=== PATIENT | male | born 1940 | race Two or more races ===

== ENCOUNTER → 2020-02-19 | Outpatient (CLI) | payer OTHER, MEDICARE ==
[~2020-02-19] MED LIST: ALLO100 PO; ALLO300 PO; AMOCLA875 PO; AMOX500 PO; ASPI325; ASPI81CH PO; ASPI81EC PO; ATOR10 PO; Acidophilus La100 GM; BASAGLAR K100 UNIT/1 SC; BUME1; BUME1 PO; BUME2 PO; CEFD300 PO; CHLO25B PO; CLON.2; CLOP75 PO; CLOT1TC TOP; CODGUAEL PO; COLC.6 PO; CYCL10 PO; DIAZ5 PO; DOC250 PO; DOCU100 PO; DOXA2 PO; DULO30 PO; FELO2.5; FOLI1 PO; Flonase 0.05% N16 GM; GABA100 PO; GABA300 PO; GLUCOSAMINE/CHONDROI PO; GLYB2.5; GLYB5 PO; GUAIFENESIN1200 MG PO; HYDACE10B PO; HYDACE5 PO; HYDACE5325 PO; HYDMOR4 PO; Hydrocodone-Ap1 EA20 PO; INS70/30I SC; INSR10I SUBQ; INSULANI SC; KETO5OP BOTHEYES; LACT10SY PO; LAVAP17G PO; LEVFLO500 PO; LIDOCAINE5 GM TOP; LISHYD2012; LISI20 PO; LISI5 PO; LOSA50 PO; Lantus100 UNIT/1 SQ; Loratadine10 MG PO; MAGCIT300 PO; MECL25 PO; METO50; METO50ER PO; METTREX2.5 PO; MOXI400 PO; Mucinex600 MG PO; NEOPOLHCSU OT; NEOPOLHYDS OT; NITR.4SL SL; NITR.6SL SL; Novolog100 UNIT/1 SC; OFLO.3OTSO AU; OMEP20ER; OMEP20ER PO; OXYACE5T PO; OXYC10TA19 PO; OXYC5 PO; Omeprazole20 M1; Omeprazole20 M1 PO; POLY17UD PO; POTA20LUD PO; POTA20PAC; POTA8; POTCHL10ER PO; POTCHL20ER PO; PRED5 PO; PREG75 PO; PROBIOTIC1 EAC1 MT; PROM25 PO; PSEU120ER PO; PSYL5.85P PO; Percocet 5-3251 EACH PO; RANI150; RANI150 PO; REFRESH OPTIVE10 ML BOTHEYES; REGULAR INSULIN; Revatio20 MG PO; SILD50TA PO; SIMV10; SPIR25 PO; TRAZ100 PO; TRIGLIDE; VICODIN 5-3001 EACH PO; Vibramycin100 MG PO; ZOLP12.5 PO; Zithromax250 MG PO
[2020-02-19 11:39] LABS: BASOPHILS ABSOLUTE AUTO 0.04 K/mm3 (0.00-0.23); BASOPHILS PERCENT AUTO 0 % (0-2); EOSINOPHILS ABSOLUTE AUTO 0.15 K/mm3 (0.00-0.68); EOSINOPHILS PERCENT AUTO 2 % (0-6); Hematocrit 46.3 % (37.0-53.0); Hemoglobin 15.4 g/dL (13.5-17.5); IMMATURE GRAN ABSOLUTE AUTO 0.02 K/mm3 (0.00-0.10); IMMATURE GRAN PERCENT AUTO 0 % (0-1); LYMPHOCYTES ABSOLUTE AUTO 1.99 K/mm3 (0.84-5.20); LYMPHOCYTES PERCENT AUTO 21 % (21-46); MONOCYTES ABSOLUTE AUTO 0.68 K/mm3 (0.16-1.47); MONOCYTES PERCENT AUTO 7 % (4-13); Mean Corpuscular HGB 31.8 pg (26.0-34.0); Mean Corpuscular HGB Conc 33.3 g/dL (31.5-36.5); Mean Corpuscular Volume 96 fL (80-100); Mean Platelet Volume 10.3 fL (9.1-12.4); NEUTROPHILS ABSOLUTE AUTO 6.65 K/mm3 (1.96-9.15); NEUTROPHILS PERCENT AUTO 70 % (41-73); Platelet Count 232 K/mm3 (150-400); RDW Coefficient Variation 12.7 % (11.7-14.2); RDW Standard Deviation 44.8 fL (35.1-46.3); Red Blood Cell Count 4.85 M/mm3 (4.30-5.90); White Blood Cell Count 9.53 K/mm3 (4.00-11.30)
[2020-02-19 11:51] LABS: International Normalized Ratio 1.01; Prothrombin Time Results 10.8 Sec (9.7-11.5)
[2020-02-19 12:03] LABS: Bun/Creatinine Ratio 21.9 (12.0-20.0); Calcium, Blood 8.7 mg/dL (8.5-10.1); Creatinine, Blood 1.46 mg/dL (0.60-1.20); Potassium, Blood 3.9 mmol/L (3.5-5.5)
== END | disposition home or self-care (01) ==
LOC: LAB 11:28 → LAB SHORT 11:28
PROVIDERS: Internal Medicine Cardiovascular Disease
DX: E11.49 Type 2 diabetes mellitus with other diabetic neurological complication (principal); I51.89 Other ill-defined heart diseases; I25.10 Atherosclerotic heart disease of native coronary artery without angina pectoris; I10 Essential (primary) hypertension; I49.3 Ventricular premature depolarization; R07.9 Chest pain, unspecified
CPT/HCPCS: 80048; 85025; 85610

== ENCOUNTER 2020-02-20 10:10 | Day surgery (SDC) | payer OTHER, MEDICARE ==
[~2020-02-20] VITALS: Ht 165.1 cm; Wt 86.0 kg
== END 2020-02-20 14:21 | disposition short-term general hospital (02) ==
LOC: MHTC 10:10
PROC: B2111ZZ Fluoroscopy of Multiple Coronary Arteries using Low Osmolar Contrast (ICD-10-PCS; principal; 2020-02-20)
PROC: 4A023N7 Measurement of Cardiac Sampling and Pressure, Left Heart, Percutaneous Approach (ICD-10-PCS; principal; 2020-02-20)
DX: I25.10 Atherosclerotic heart disease of native coronary artery without angina pectoris (principal); I11.0 Hypertensive heart disease with heart failure; I50.9 Heart failure, unspecified; E11.9 Type 2 diabetes mellitus without complications; I34.0 Nonrheumatic mitral (valve) insufficiency; E78.5 Hyperlipidemia, unspecified; K21.9 Gastro-esophageal reflux disease without esophagitis; M10.9 Gout, unspecified; I25.2 Old myocardial infarction; Z79.4 Long term (current) use of insulin; Z79.51 Long term (current) use of inhaled steroids; Z79.82 Long term (current) use of aspirin; Z79.899 Other long term (current) drug therapy; Z87.891 Personal history of nicotine dependence; Z88.8 Allergy status to other drugs, medicaments and biological substances; Z90.49 Acquired absence of other specified parts of digestive tract; Z95.0 Presence of cardiac pacemaker; Z95.5 Presence of coronary angioplasty implant and graft
CPT/HCPCS: 82947; 93454; 99152; 99153; C1769; C1894; J1644; J2250; J3010; J7030; Q9967

== ENCOUNTER 2020-04-01 03:19 | Observation (INO) | payer OTHER, MEDICARE ==
[~2020-04-01] VITALS: Ht 165.1 cm; Wt 81.7 kg
[2020-04-01 03:57] LABS: BASOPHILS ABSOLUTE AUTO 0.04 K/mm3 (0.00-0.23); BASOPHILS PERCENT AUTO 1 % (0-2); EOSINOPHILS ABSOLUTE AUTO 0.36 K/mm3 (0.00-0.68); EOSINOPHILS PERCENT AUTO 5 % (0-6); Hematocrit 31.2 % (37.0-53.0); Hemoglobin 9.7 g/dL (13.5-17.5); IMMATURE GRAN ABSOLUTE AUTO 0.01 K/mm3 (0.00-0.10); IMMATURE GRAN PERCENT AUTO 0 % (0-1); LYMPHOCYTES ABSOLUTE AUTO 1.52 K/mm3 (0.84-5.20); LYMPHOCYTES PERCENT AUTO 22 % (21-46); MONOCYTES ABSOLUTE AUTO 0.69 K/mm3 (0.16-1.47); MONOCYTES PERCENT AUTO 10 % (4-13); Mean Corpuscular HGB 29.4 pg (26.0-34.0); Mean Corpuscular HGB Conc 31.1 g/dL (31.5-36.5); Mean Corpuscular Volume 95 fL (80-100); Mean Platelet Volume 9.3 fL (9.1-12.4); NEUTROPHILS ABSOLUTE AUTO 4.23 K/mm3 (1.96-9.15); NEUTROPHILS PERCENT AUTO 62 % (41-73); Platelet Count 281 K/mm3 (150-400); RDW Coefficient Variation 12.9 % (11.7-14.2); RDW Standard Deviation 44.8 fL (35.1-46.3); White Blood Cell Count 6.85 K/mm3 (4.00-11.30)
[2020-04-01 04:20] LABS: Alanine Aminotransfer (ALT/SGP 7 U/L (12-78); Albumin, Blood 3.2 g/dL (3.4-5.0); Alk Phos 73 U/L (50-136); Anion Gap 7 mmol/L (6-16); Aspartate Aminotrans (AST/SGOT 10 U/L (12-37); Bilirubin, Total 0.3 mg/dL (0.1-1.0); Blood Urea Nitrogen 28 mg/dL (8-24); Bun/Creatinine Ratio 19.6 (12.0-20.0); CO2, Blood 28 mmol/L (21-32); Calcium, Blood 8.2 mg/dL (8.5-10.1); Chloride, Blood 108 mmol/L (98-108); Creatinine, Blood 1.43 mg/dL (0.60-1.20); Globulin, Blood 3.2 g/dL (2.2-4.0); Glomerular Filtration Rate 50 (60-); Glucose, Blood 84 mg/dL (70-99); Potassium, Blood 3.3 mmol/L (3.5-5.5); Sodium, Blood 143 mmol/L (136-145); Total Protein, Blood 6.4 g/dL (6.4-8.2); Troponin I <0.015 ng/mL (0.000-0.040)
[2020-04-01] MEDS ORDERED: Bumetanide1 MG PO (04:41)
[2020-04-01] MEDS ORDERED: REFRESH OPTIVE10 ML (04:43)
[2020-04-01] MEDS ORDERED: METOPROLOL TART25 MG PO (04:45)
[2020-04-01] MEDS ORDERED: POTCHL20ER PO (04:46)
[2020-04-01] MEDS ORDERED: INSULANPEN SC (05:06)
[2020-04-01] MEDS ORDERED: NOVOLOG100 UNIT/1 SC (05:07)
[2020-04-01] MEDS ORDERED: TAMS.4ER PO (09:17)
--- NOTE | 2020-04-01 11:07 | NUR ---
Echocardiogram completed.
[2020-04-01 12:25] LABS: CPK Creatine Kinase 55 U/L (39-308); Magnesium, Blood 2.5 mg/dL (1.6-2.4); Troponin I <0.015 ng/mL (0.000-0.040)
[2020-04-01] MEDS ORDERED: Flomax0.4 MG PO (16:21)
--- NOTE | 2020-04-01 16:24 | NUR ---
RECEIVED VERBAL ORDER FOR TAMSULOSIN AND NASAL SPRAY FROM DR. SCHREIBER
--- NOTE | 2020-04-01 17:49 | NUR ---
Shift Summary A/Ox3 pleasant and cooperative. Ambulated and up in room independently, tolerated ambulation well c FWW. Able to make needs known. Denies chest pain, SOB, dyspnea. C/O nausea after meals, medicated x 1 per EMAR with good results. Tele: SR First degree with BBB @ 70's. Blood sugars have been stable. Continent. No other concerns. Will continue to monitor.
--- NOTE | 2020-04-01 20:09 | NUR ---
ASSUMED CARE. AOX3, COOPERATIVE. LAYING IN BED. BEEN TIRED LATELY. DENIES ANY CURRENT CHEST PAIN OR DISCOMFORT. NO PALPITATIONS. EDEMA TO BLE +2 SHINY AND TIGHT UP TO KNEES. TELEMETRY SHOWS PACED AT 60. FIXED THE LEADS. DENIES ANY OTHER PAIN. STATES HE DOES NOT KNOW WHAT CAUSED THE CHEST PAIN WHEN HE CAME IN BUT IT IS THE WORST HE HAS EVER HAD. DISCUSSED CARDIAC HOME CARE AND PREVENTIONS. HE IS KNOWLEDGABLE. VS WNL. ADMINISTERED MEDICATION. DENIES ANY NEEDS AT THIS TIME. CALL LIGHT IN REACH, INDEPENDENT IN THE ROOM.
[2020-04-01 21:05] LABS: CPK Creatine Kinase 51 U/L (39-308); Troponin I <0.015 ng/mL (0.000-0.040)
--- NOTE | 2020-04-02 05:38 | NUR ---
SHIFT SUMMARY: 79 Y/O ADMITTED FOR CP. TELE REPORTS PACED RATE OF 60. NO CHEST PAIN OR SOB THIS SHIFT. VS HAVE REMAINED STABLE, AFEBRILE. INDEPENDENT IN THE ROOM. WEIGHT 180. SHIFT INTAKE 476, OUTPUT 275 AND 2 UNMEASURED VOIDS. EDEMA REMAINS IN BLE. APPETITE GOOD. FOLLOWING ADA DIET. HOPES TO GO HOME TODAY. NO OTHER CHANGES OCCURRED THIS SHIFT.
[2020-04-02 05:52] LABS: BASOPHILS ABSOLUTE AUTO 0.04 K/mm3 (0.00-0.23); BASOPHILS PERCENT AUTO 1 % (0-2); EOSINOPHILS PERCENT AUTO 5 % (0-6); Hematocrit 28.1 % (37.0-53.0); Hemoglobin 8.7 g/dL (13.5-17.5); IMMATURE GRAN ABSOLUTE AUTO 0.01 K/mm3 (0.00-0.10); IMMATURE GRAN PERCENT AUTO 0 % (0-1); LYMPHOCYTES ABSOLUTE AUTO 1.51 K/mm3 (0.84-5.20); LYMPHOCYTES PERCENT AUTO 23 % (21-46); MONOCYTES ABSOLUTE AUTO 0.66 K/mm3 (0.16-1.47); MONOCYTES PERCENT AUTO 10 % (4-13); Mean Corpuscular Volume 94 fL (80-100); Mean Platelet Volume 9.7 fL (9.1-12.4); NEUTROPHILS ABSOLUTE AUTO 3.93 K/mm3 (1.96-9.15); NEUTROPHILS PERCENT AUTO 61 % (41-73); Platelet Count 261 K/mm3 (150-400); RDW Coefficient Variation 13.2 % (11.7-14.2); White Blood Cell Count 6.45 K/mm3 (4.00-11.30)
[2020-04-02 06:14] LABS: Albumin, Blood 2.8 g/dL (3.4-5.0); Albumin/Globulin Ratio 0.9 (0.8-1.8); Bilirubin, Total 0.3 mg/dL (0.1-1.0); Bun/Creatinine Ratio 17.5 (12.0-20.0); Calcium, Blood 8.1 mg/dL (8.5-10.1); Creatinine, Blood 1.6 mg/dL (0.60-1.20); Potassium, Blood 3.5 mmol/L (3.5-5.5); Total Protein, Blood 5.8 g/dL (6.4-8.2)
--- NOTE | 2020-04-02 09:48 | NUR ---
Discharge Summary Eager to be discharged, patient is being d/c home. stroke program coordinator Ger assisted with discharge paperwork. Discharge and educational paperwork reveiwed with patient, copy provided. IV removed, patient had no questions. No new meds, [facility] notified [facility]. Escorted via w/c by [employer], personal vehicle home. All belongings bagged by patient and sent home.
== END 2020-04-02 09:50 | disposition home or self-care (01) ==
LOC: ER 03:19 → MEDS 03:20
PROVIDERS: Emergency Medicine; ADMIT Internal Medicine
DX: I25.118 Atherosclerotic heart disease of native coronary artery with other forms of angina pectoris (principal); R13.10 Dysphagia, unspecified; N17.9 Acute kidney failure, unspecified; E87.6 Hypokalemia; D64.9 Anemia, unspecified; I13.0 Hypertensive heart and chronic kidney disease with heart failure and stage 1 through stage 4 chronic kidney disease, or unspecified chronic kidney disease; I50.9 Heart failure, unspecified; E11.22 Type 2 diabetes mellitus with diabetic chronic kidney disease; N18.3 Chronic kidney disease, stage 3 (moderate); N40.0 Benign prostatic hyperplasia without lower urinary tract symptoms; I25.2 Old myocardial infarction; K21.9 Gastro-esophageal reflux disease without esophagitis; M06.9 Rheumatoid arthritis, unspecified; Z95.0 Presence of cardiac pacemaker; Z95.1 Presence of aortocoronary bypass graft; Z79.82 Long term (current) use of aspirin; Z79.899 Other long term (current) drug therapy
CPT/HCPCS: 36415; 71046; 80053; 82550; 82947; 83690; 83735; 83880; 84484; 85025; 93005; 93010; 93306; 96372; 96374; 99285-25; A9270; A9270-GY; G0378; J1650; J2405

== ENCOUNTER 2020-06-08 09:11 | Inpatient (IN) | payer OTHER, MEDICARE ==
[~2020-06-08] VITALS: Ht 167.6 cm; Wt 87.0 kg
[~2020-06-08 09:11] MED LIST changes: +FLUT.05NI; +Flomax0.4 MG PO; +HYDROCODONE-AC1 EAC7 PO; -Hydrocodone-Ap1 EA20 PO; +LIDO700A20 TOP; -LIDOCAINE5 GM TOP; +METOPROLOL TART25 MG PO; +NOVOLOG FL100 UNIT/3 SC; +REFRESH OPTIVE10 ML; +TAMS.4ER PO
[2020-06-08 09:37] LABS: BASOPHILS ABSOLUTE AUTO 0.05 K/mm3 (0.00-0.23); BASOPHILS PERCENT AUTO 1 % (0-2); EOSINOPHILS ABSOLUTE AUTO 0.24 K/mm3 (0.00-0.68); EOSINOPHILS PERCENT AUTO 4 % (0-6); Hematocrit 44.1 % (37.0-53.0); Hemoglobin 13.9 g/dL (13.5-17.5); IMMATURE GRAN ABSOLUTE AUTO 0.01 K/mm3 (0.00-0.10); IMMATURE GRAN PERCENT AUTO 0 % (0-1); LYMPHOCYTES ABSOLUTE AUTO 2.12 K/mm3 (0.84-5.20); LYMPHOCYTES PERCENT AUTO 31 % (21-46); MONOCYTES PERCENT AUTO 10 % (4-13); Mean Corpuscular HGB 29.1 pg (26.0-34.0); Mean Corpuscular HGB Conc 31.5 g/dL (31.5-36.5); Mean Corpuscular Volume 93 fL (80-100); NEUTROPHILS ABSOLUTE AUTO 3.77 K/mm3 (1.96-9.15); NEUTROPHILS PERCENT AUTO 55 % (41-73); Platelet Count 211 K/mm3 (150-400); RDW Coefficient Variation 15.8 % (11.7-14.2); RDW Standard Deviation 53.7 fL (35.1-46.3); Red Blood Cell Count 4.77 M/mm3 (4.30-5.90); White Blood Cell Count 6.89 K/mm3 (4.00-11.30)
[2020-06-08 09:49] LABS: Albumin, Blood 3.5 g/dL (3.4-5.0); Albumin/Globulin Ratio 0.9 (0.8-1.8); Bilirubin, Total 0.3 mg/dL (0.1-1.0); Calcium, Blood 9.2 mg/dL (8.5-10.1); Creatinine, Blood 1.77 mg/dL (0.60-1.20); Potassium, Blood 4.2 mmol/L (3.5-5.5); Total Protein, Blood 7.5 g/dL (6.4-8.2); Troponin I 0.229 ng/mL (0.000-0.040)
[2020-06-08] MEDS ORDERED: FERSU300 PO ×2 (10:22→16:11)
[2020-06-08] MEDS ORDERED: FOLI1 PO (10:22)
[2020-06-08] MEDS ORDERED: LOSA50 PO (10:28)
[2020-06-08] MEDS ORDERED: PANT20 PO (10:28)
[2020-06-08] MEDS ORDERED: SPIR50 PO ×2 (10:29→16:16)
[2020-06-08] MEDS ORDERED: SILDENAFIL CIT100 MG PO (10:29)
[2020-06-08] MEDS ORDERED: Hytrin2 MG PO (10:30)
[2020-06-08 10:41] LABS: International Normalized Ratio 0.96; Prothrombin Time Results 10.3 Sec (9.7-11.5)
[2020-06-08] MEDS ORDERED: MIRALAX17 GM PO (14:01)
--- NOTE | 2020-06-08 15:27 | NUR ---
PT PACEMAKER CHECKED PER V/O FROM DR DECKER, DEVICE REVIEWED WITH DAVID ([employer]), REPORT ROUTED TO DR DECKER IN [facility]
[2020-06-08] MEDS ORDERED: LACT PO (16:13)
[2020-06-08] MEDS ORDERED: SILD50TA PO (16:15)
--- NOTE | 2020-06-08 18:12 | NUR ---
SHIFT SUMMARY PT WAS ADMIT THIS AFTERNOON FROM ER WITH CP. SINCE ARRIVAL TO PCU, PT HAS BEEN CHEST PAIN FREE. PT IS ALERT AND ORIENTED X4, INDEPENDANT IN ROOM. TELEMETRY HAS SHOWN PT TO BE SINUS WITH OCCASIONAL V-PACING, OTHER VITALS HAVE REMAINED STABLE. PT UPDATED ON PLAN FOR STRESS TEST TOMORROW. HEPARIN GTT INITIATED PER PHARMACY DOSING, SEE EMAR.
--- NOTE | 2020-06-09 06:00 | NUR ---
SHIFT SUMMARY. REPORTS FEELING GREAT THIS AM WHEN AWAKENED , NO CHEST DISCOMFORT OR ANY ISSUES. SCDS VERY COMFORTABLE FOR THE PAIN IN LEGS FROM NEUROPATHY.GOOD RELIEF. CHANGING DOSE FOR HEPARIN PER ORDER. REMAINS NPO
[2020-06-09 06:11] LABS: BASOPHILS ABSOLUTE AUTO 0.04 K/mm3 (0.00-0.23); BASOPHILS PERCENT AUTO 1 % (0-2); EOSINOPHILS ABSOLUTE AUTO 0.25 K/mm3 (0.00-0.68); EOSINOPHILS PERCENT AUTO 4 % (0-6); Hematocrit 42.8 % (37.0-53.0); IMMATURE GRAN ABSOLUTE AUTO 0.01 K/mm3 (0.00-0.10); IMMATURE GRAN PERCENT AUTO 0 % (0-1); LYMPHOCYTES ABSOLUTE AUTO 1.58 K/mm3 (0.84-5.20); LYMPHOCYTES PERCENT AUTO 28 % (21-46); MONOCYTES PERCENT AUTO 11 % (4-13); Mean Corpuscular HGB 29.5 pg (26.0-34.0); Mean Corpuscular HGB Conc 32.7 g/dL (31.5-36.5); Mean Corpuscular Volume 90 fL (80-100); Mean Platelet Volume 9.8 fL (9.1-12.4); NEUTROPHILS PERCENT AUTO 56 % (41-73); Platelet Count 195 K/mm3 (150-400); RDW Coefficient Variation 15.6 % (11.7-14.2); RDW Standard Deviation 51.8 fL (35.1-46.3); Red Blood Cell Count 4.74 M/mm3 (4.30-5.90); White Blood Cell Count 5.68 K/mm3 (4.00-11.30)
[2020-06-09 06:29] LABS: Alanine Aminotransfer (ALT/SGP 14 U/L (12-78); Albumin, Blood 3.2 g/dL (3.4-5.0); Albumin/Globulin Ratio 0.9 (0.8-1.8); Alk Phos 67 U/L (50-136); Anion Gap 6 mmol/L (6-16); Aspartate Aminotrans (AST/SGOT 17 U/L (12-37); Bilirubin, Total 0.5 mg/dL (0.1-1.0); Blood Urea Nitrogen 36 mg/dL (8-24); Bun/Creatinine Ratio 25.4 (12.0-20.0); CHOL/HDL RATIO 4.7; CO2, Blood 25 mmol/L (21-32); Chloride, Blood 109 mmol/L (98-108); Cholesterol 197 mg/dL (50-200); Creatinine, Blood 1.42 mg/dL (0.60-1.20); Globulin, Blood 3.6 g/dL (2.2-4.0); Glomerular Filtration Rate 51 (60-); Glucose, Blood 88 mg/dL (70-99); HDL Cholesterol 42 mg/dL (>39); LDL/HDL RATIO 3.1; Low Density Lipoprotein Chol 130 mg/dL (0-110); Sodium, Blood 140 mmol/L (136-145); Total Protein, Blood 6.8 g/dL (6.4-8.2); Triglycerides 127 mg/dL (30-160); Very Low Density Lipoprot Chol 25 mg/dL (6-32)
--- NOTE | 2020-06-09 07:34 | NUR ---
ASSUMED CARE: PT RESTING QUIETLY AT THIS TIME. HEPARIN GTT RUNNING AND DOSE VERIFIED WITH NIGHT RN. NO FURTHER NEEDS OR CONCERNS AT THIS TIME.
--- NOTE | 2020-06-09 17:15 | NUR ---
PT BECAME IRRITABLE AND ASKED WHY HE STILL HAD TO BE HERE SINCE HIS STRESS TEST WAS COMPLETED. CALL TO DR DECKER WHO STATED HE WANTS PT OFF HEPARIN AND MONITOR OVERNIGHT FOR POSSIBLE DC IN AM. TOLD PT WHO WASN'T THRILLED WITH NEWS BUT AGREED TO STAY TONIGHT.
--- NOTE | 2020-06-09 17:31 | NUR ---
SHIFT SUMMARY: DR STEVENS MADE AWARE OF DR DECKER'S PLAN FOR PT. PT START NEW MEDS THIS EVENING AND BE MONITORED OVERNIGHT FOR SYMPTOMS. PLAN IS FOR DC IN AM IF NO NEW CONCERNS. PT INDEPENDENT IN ROOM. NO FURTHER NEEDS AT THIS TIME.
--- NOTE | 2020-06-09 21:32 | NUR ---
ASSUMED CARE OF PATIENT AT APPROXIMATELY 1905 FROM SANTHOSH Laguerre RN. PATIENT ALERT AND ORIENTED X4; INDEPENDENT TO BATHROOM; REFUSES URINAL; REPORTS HE GOES INTO TOILET OR WILL GET IT ALL OVER THE PLACE. PATIENT DENIES PAIN, NUMBNESS, TINGLING, DIZZINESS OR NAUSEA. PIV S/L. PATIENT READY TO GO HOME. PATIENT CURRENTLY RESTING IN BED; CALL LIGHT IN REACH; BED IN LOWEST POSISTION; WILL CONTINUE TO MONITOR AND ASSESS UNTIL END OF SHIFT.
--- NOTE | 2020-06-09 22:07 | NUR ---
HEPARIN GTT; LAB HERE TO DRAW PTT; PHARMACIST NOT AWARE PATIENT WAS NO LONGER RECIEVING HEPARIN; NOTIFIED OF DAYSHIFT RN REPORT THAT HEPARIN TURNED OFF AND NOTE.
--- NOTE | 2020-06-10 06:41 | NUR ---
DR. DECKER CALLED TO REPORT PATIENT CAN DISCHARGE HOME.
--- NOTE | 2020-06-10 06:41 | NUR ---
PATIENT SLEPT ABOUT EIGHT HOURS LAST NIGHT. VSS. WILL CONTINUE TO MONITOR AND ASSESS UNTIL END OF SHIFT.
--- NOTE | 2020-06-10 08:12 | NUR ---
The pt is extremely eager to be discharged and released from the hospital. He is angry at being made to stay overnight.
[2020-06-10] MEDS ORDERED: LOSA25 PO (10:11)
[2020-06-10] MEDS ORDERED: CLOP75 PO (10:11)
[2020-06-10] MEDS ORDERED: Isosorbide Mono30 MG PO (10:12)
[2020-06-10] MEDS ORDERED: METO50ER PO (10:12)
== END 2020-06-10 11:15 | disposition home or self-care (01) | DRG 281 ==
LOC: ER 09:11 → PCU 11:35
PROVIDERS: Emergency Medicine; Nurse Practitioner Acute Care; ADMIT Family Medicine
DX: I21.4 Non-ST elevation (NSTEMI) myocardial infarction (principal); I13.0 Hypertensive heart and chronic kidney disease with heart failure and stage 1 through stage 4 chronic kidney disease, or unspecified chronic kidney disease; I50.32 Chronic diastolic (congestive) heart failure; N17.9 Acute kidney failure, unspecified; I25.10 Atherosclerotic heart disease of native coronary artery without angina pectoris; N18.3 Chronic kidney disease, stage 3 (moderate); E78.5 Hyperlipidemia, unspecified; E11.22 Type 2 diabetes mellitus with diabetic chronic kidney disease; K21.9 Gastro-esophageal reflux disease without esophagitis; M06.9 Rheumatoid arthritis, unspecified; E11.42 Type 2 diabetes mellitus with diabetic polyneuropathy; N40.0 Benign prostatic hyperplasia without lower urinary tract symptoms; Z95.0 Presence of cardiac pacemaker; Z95.1 Presence of aortocoronary bypass graft; Z95.5 Presence of coronary angioplasty implant and graft; Z79.82 Long term (current) use of aspirin; Z79.84 Long term (current) use of oral hypoglycemic drugs
CPT/HCPCS: 36415; 71046; 78452; 80053; 80061; 82947; 83735; 83880; 84484; 85025; 85610; 85730; 93005; 93010; 93017; 93280; 99285-25; A9270; A9270-GY; A9500; C9113; J0280; J1644; J2785

== ENCOUNTER → 2021-04-20 | Outpatient (CLI) | payer OTHER, MEDICARE ==
[~2021-04-20] MED LIST changes: +Aspirin EC81 MG PO; +FERSU300 PO; +Hytrin2 MG PO; +Isosorbide Mono30 MG PO; +Keflex500 MG PO; +LACT PO; +LOSA25 PO; +METO25ER PO; +MIRALAX17 GM PO; +PANT20 PO; +SILDENAFIL CIT100 MG PO; +SPIR50 PO
[2021-04-20 14:39] LABS: Source, Urine Clean Catch
[2021-04-20 15:21] LABS: Appearance, Urine Cloudy (Clear); Bilirubin, Urine Neg (Neg); Blood, Urine 5+ (Neg); Glucose Qualitative, Urine Neg (Neg); Ketones, Urine Neg (Neg); Leukocyte Esterase, Urine 3+ (Neg); Nitrite, Urine Neg (Neg); Protein, Urine 2+ (Neg); Urobilinogen, Urine NORM (Normal)
[2021-04-20 15:29] LABS: Color, Urine Pale Yellow (P-Yellow); Red Blood Cells, Urine TNTC /hpf (0-2); White Blood Cells, Urine TNTC /hpf (0-5)
[2021-04-20 15:30] LABS: Bacteria Many /hpf; Squamous Epithelial Cells Few /hpf (Few); Transitional Epithelial Cells Few /hpf (0-Rare)
== END | disposition home or self-care (01) ==
LOC: LAB SHORT 14:36 → LAB FUT 04-20 14:00
PROVIDERS: Urology
DX: N39.0 Urinary tract infection, site not specified (principal)
CPT/HCPCS: 81001; 87077; 87086; 87186

== ENCOUNTER 2021-04-21 20:21 | Emergency (ER) | payer OTHER, MEDICARE ==
[~2021-04-21] VITALS: Ht 165.1 cm; Wt 88.5 kg
[~2021-04-21 20:21] MED LIST changes: -Keflex500 MG PO
[2021-04-21 20:52] LABS: Source, Urine Clean Catch
[2021-04-21 20:54] LABS: BASOPHILS ABSOLUTE AUTO 0.05 K/mm3 (0.00-0.23); BASOPHILS PERCENT AUTO 1 % (0-2); EOSINOPHILS ABSOLUTE AUTO 0.25 K/mm3 (0.00-0.68); EOSINOPHILS PERCENT AUTO 2 % (0-6); Hematocrit 41.7 % (37.0-53.0); Hemoglobin 14.1 g/dL (13.5-17.5); IMMATURE GRAN ABSOLUTE AUTO 0.03 K/mm3 (0.00-0.10); IMMATURE GRAN PERCENT AUTO 0 % (0-1); LYMPHOCYTES ABSOLUTE AUTO 2.08 K/mm3 (0.84-5.20); LYMPHOCYTES PERCENT AUTO 19 % (21-46); MONOCYTES ABSOLUTE AUTO 0.92 K/mm3 (0.16-1.47); MONOCYTES PERCENT AUTO 9 % (4-13); Mean Corpuscular HGB 31.8 pg (26.0-34.0); Mean Corpuscular HGB Conc 33.8 g/dL (31.5-36.5); Mean Corpuscular Volume 94 fL (80-100); Mean Platelet Volume 9.6 fL (9.1-12.4); NEUTROPHILS ABSOLUTE AUTO 7.47 K/mm3 (1.96-9.15); NEUTROPHILS PERCENT AUTO 69 % (41-73); Platelet Count 237 K/mm3 (150-400); RDW Coefficient Variation 12.8 % (11.7-14.2); RDW Standard Deviation 44.4 fL (35.1-46.3); Red Blood Cell Count 4.43 M/mm3 (4.30-5.90)
[2021-04-21 21:08] LABS: Albumin, Blood 3.5 g/dL (3.4-5.0); Albumin/Globulin Ratio 0.8 (0.8-1.8); Bilirubin, Total 0.4 mg/dL (0.1-1.0); Bilirubin, Urine Neg (Neg); Blood, Urine 5+ (Neg); Bun/Creatinine Ratio 20.9 (12.0-20.0); Calcium, Blood 9.1 mg/dL (8.5-10.1); Creatinine, Blood 1.58 mg/dL (0.60-1.20); Globulin, Blood 4.2 g/dL (2.2-4.0); Glucose Qualitative, Urine Neg (Neg); Ketones, Urine Neg (Neg); Leukocyte Esterase, Urine 3+ (Neg); Nitrite, Urine Neg (Neg); Potassium, Blood 3.8 mmol/L (3.5-5.5); Protein, Urine 3+ (Neg); Specific Gravity, Urine 1.015 (1.003-1.022); Total Protein, Blood 7.7 g/dL (6.4-8.2); Urobilinogen, Urine NORM (Normal)
[2021-04-21] MEDS ORDERED: TAMS.4ER PO (21:21)
[2021-04-21] MEDS ORDERED: SPIR25 PO (21:21)
[2021-04-21 21:27] LABS: Appearance, Urine Cloudy (Clear); Bacteria Mod /hpf; Color, Urine Yellow (P-Yellow); Red Blood Cells, Urine 50-100 /hpf (0-2); Squamous Epithelial Cells Not Seen /hpf (Few); White Blood Cells, Urine TNTC /hpf (0-5)
[2021-04-21] MEDS ORDERED: Keflex500 MG PO (22:00)
== END 2021-04-21 22:26 | disposition home or self-care (01) ==
LOC: ER 20:21
PROVIDERS: Emergency Medicine
DX: N12 Tubulo-interstitial nephritis, not specified as acute or chronic (principal); Z79.02 Long term (current) use of antithrombotics/antiplatelets; Z79.899 Other long term (current) drug therapy
CPT/HCPCS: 80053; 81001; 85025; 87086; 96374; 99284-25; J0696; J7030

== ENCOUNTER 2021-06-03 14:16 | Inpatient (IN) | payer MEDICARE, OTHER ==
[~2021-06-03] VITALS: Ht 167.6 cm; Wt 85.3 kg
[~2021-06-03 14:16] MED LIST changes: +Keflex500 MG PO
[2021-06-03] MEDS ORDERED: BUME1 PO (15:21)
[2021-06-03] MEDS ORDERED: INSULANI SC (15:24)
[2021-06-03] MEDS ORDERED: METO25ER PO (15:26)
[2021-06-03] MEDS ORDERED: POTCHL20ER PO (15:27)
[2021-06-03 16:22] LABS: Hematocrit 40.1 % (37.0-53.0); Hemoglobin 13.7 g/dL (13.5-17.5); Mean Corpuscular HGB 32.2 pg (26.0-34.0); Mean Corpuscular HGB Conc 34.2 g/dL (31.5-36.5); Mean Corpuscular Volume 94 fL (80-100); Mean Platelet Volume 10.6 fL (9.1-12.4); Platelet Count 212 K/mm3 (150-400); RDW Coefficient Variation 13.2 % (11.7-14.2); RDW Standard Deviation 45.7 fL (35.1-46.3); Red Blood Cell Count 4.26 M/mm3 (4.30-5.90); White Blood Cell Count 10.73 K/mm3 (4.00-11.30)
[2021-06-03 16:41] LABS: Albumin/Globulin Ratio 0.7 (0.8-1.8); Bilirubin, Total 0.5 mg/dL (0.1-1.0); Bun/Creatinine Ratio 28.4 (12.0-20.0); Calcium, Blood 9.4 mg/dL (8.5-10.1); Creatinine, Blood 2.15 mg/dL (0.60-1.20); Globulin, Blood 4.2 g/dL (2.2-4.0); Total Protein, Blood 7.2 g/dL (6.4-8.2)
[2021-06-03 16:50] LABS: BAND PERCENT MAN 46 % (0-8); BASOPHILS PERCENT MAN 1 % (0-2); EOSINOPHILS PERCENT MAN 1 % (0-6); LYMPHOCYTES ABSOLUTE MAN 0.32 K/mm3 (0.84-5.20); LYMPHOCYTES PERCENT MAN 3 % (21-46); METAMYELOCYTE PERCENT MAN 14 % (0-0); MONOCYTES ABSOLUTE MAN 0.32 K/mm3 (0.16-1.47); MONOCYTES PERCENT MAN 3 % (4-13); MYELOCYTE PERCENT MAN 1 % (0-0); NEUTROPHILS ABSOLUTE MAN 8.26 K/mm3 (1.96-9.15); SEG NEUTROPHILS PERCENT MAN 31 % (41-73); TOTAL CELLS COUNTED 100
[2021-06-03 17:48] LABS: Source, Urine Clean Catch
[2021-06-03 17:51] LABS: Appearance, Urine Clear (Clear); Bilirubin, Urine Neg (Neg); Blood, Urine 2+ (Neg); Color, Urine Yellow (P-Yellow); Glucose Qualitative, Urine Neg (Neg); Ketones, Urine Neg (Neg); Leukocyte Esterase, Urine Neg (Neg); Nitrite, Urine Neg (Neg); Protein, Urine 1+ (Neg); Urobilinogen, Urine NORM (Normal)
[2021-06-03 18:32] LABS: Bacteria Few /hpf; Hyaline Casts 0-2 /lpf (0-2); Squamous Epithelial Cells Rare /hpf (Few); White Blood Cells, Urine 0-2 /hpf (0-5)
--- NOTE | 2021-06-03 21:23 | NUR ---
ADMITTED 81 YR OLD MALE. WITH PNEUMONIA. VOICED HX BLADDER CA, RENAL ISSUES, HEART AND SWELLING ISSUES AND DM. ORIENTED TO CALL LIGHT AND FALL RISKS. CALL LIGHT IN REACH
--- NOTE | 2021-06-04 04:57 | NUR ---
NIHT SHIFT SUMMARY ADMITTED EARLIER IN THE SHIFT WITH PNA. WAS ACCOMPANIED BY . ELEVATED LACTIC ACID LEVEL. CHF AND PACEMAKER. IVF OF NS AT 100 ML. ALERT AND ORIENTED. HAS REINALDO RESTING AT INTERVALS. VOICED CHEST PAIN WIH DEEP BREATHS. MED TELE PACED. CALL LIGHT IN REACH
[2021-06-04 05:31] LABS: Hematocrit 36.9 % (37.0-53.0); Hemoglobin 12.6 g/dL (13.5-17.5); Mean Corpuscular HGB 31.7 pg (26.0-34.0); Mean Corpuscular HGB Conc 34.1 g/dL (31.5-36.5); Mean Corpuscular Volume 93 fL (80-100); Mean Platelet Volume 10.8 fL (9.1-12.4); Platelet Count 178 K/mm3 (150-400); RDW Coefficient Variation 13.2 % (11.7-14.2); RDW Standard Deviation 44.9 fL (35.1-46.3); Red Blood Cell Count 3.98 M/mm3 (4.30-5.90); White Blood Cell Count 9.54 K/mm3 (4.00-11.30)
[2021-06-04 05:53] LABS: BAND PERCENT MAN 34 % (0-8); BASOPHILS PERCENT MAN 0 % (0-2); EOSINOPHILS ABSOLUTE MAN 0.09 K/mm3 (0.00-0.68); EOSINOPHILS PERCENT MAN 1 % (0-6); LYMPHOCYTES ABSOLUTE MAN 0.57 K/mm3 (0.84-5.20); LYMPHOCYTES PERCENT MAN 6 % (21-46); MONOCYTES ABSOLUTE MAN 0.19 K/mm3 (0.16-1.47); MONOCYTES PERCENT MAN 2 % (4-13); NEUTROPHILS ABSOLUTE MAN 8.68 K/mm3 (1.96-9.15); SEG NEUTROPHILS PERCENT MAN 57 % (41-73); TOTAL CELLS COUNTED 100
[2021-06-04 05:55] LABS: Bun/Creatinine Ratio 31.3 (12.0-20.0); Calcium, Blood 8.8 mg/dL (8.5-10.1); Creatinine, Blood 1.79 mg/dL (0.60-1.20); Potassium, Blood 3.9 mmol/L (3.5-5.5)
--- NOTE | 2021-06-04 07:30 | NUR ---
ASSUMED CARE: PT WAS ALERT AND ORIENTED, COOPERATIVE WITH BEDSIDE REPORT. SHORTLY AFTER, TELE CALLED DUE TO PT'S HR REACHING 150S AND PT WAS AMBULATING TO RESTROOM. WHEN RN WENT INTO ROOM PT STARTED YELLING AND STATED THAT IF WE DIDN'T WANT HIM HERE THEN WE SHOULD CALL THE DR AND HE COULD GO HOME. WHEN NURSE ASKED HIM WHAT CAUSED HIM TO GET UPSET PT STATED HE HEARD US SAY HE WAS UP AND WALKING. NURSE EXPLAINED THAT THIS WAS TO TELE AND NOT TO DR. PT SAT DOWN ON BED AND BEGAN TO CALM DOWN. TELE CALLED LATER STATING HR HAD DECREASED TO 112. CERTIFIED CODING SPECIALIST AT BEDSIDE AT THIS TIME.
--- NOTE | 2021-06-04 16:21 | NUR ---
PT ASKING FOR FLONASE THAT HE STATES HE USES DAILY FOR CONGESTION. CALL TO DR APONTE. ALSO DISCUSSED WITH DR APONTE PT'S INSULIN ORDERS. PT STATES HE USES 15 UNITS LANTUS TWICE A DAY. DR APONTE MADE AWARE BUT DID NOT REORDER DUE TO PT'S CBGS IN 170S AT THIS TIME.
--- NOTE | 2021-06-04 17:26 | NUR ---
SHIFT SUMMARY: PT HAS BEEN ON 3L ALL SHIFT. SINUS TACH WITH ACTIVITY THIS AM BUT NO FURTHER EVENTS. POSSIBLE DC TOMORROW IF REMAINS STABLE.
--- NOTE | 2021-06-04 20:17 | NUR ---
YELLING ON PHONE, VOICED HE WAS TRYING TO SPEAK WITH BUT SHE WOULDNT SPEAK TO HIM AND WAS TRYING TO SPEAK WITH ANOTHER PERSON TO CONVEY HIS INFORMATION. WANTED TO GET TEST TO R/O COVID SHE WAS SHOWING S/S OF POSSIBLE POSITIVE. "WE WENT ALL AROUND TOWN AND COULDNT FINS ANYONE TO DO THE TEST", I SUGGESTED THAT I WOULD ASK THE AM NURSE TO ASK THE MD IN THE AM TO SET UP A POSSSIBLE TEST IN THE ED IN THE AM, AND HAVE PT SPEAK WITH THE MD RE SITUATION. CALL LIGHT IN REACH. TELE REPORTED SINUS TACH. SEE ABOVE INFO RE POSSIBLE UNDERLYING REASON. ENCOURAGED PT TO REST AND TRY TO RELAX
--- NOTE | 2021-06-05 04:50 | NUR ---
C/O CHEST PAIN, PRESSURE. BP ELEVATED, MED [employer] SR AT 94, ALL PLACED TO MD CARDIOGRAPH OPERATOR. ORDERS OBTAINED. CXR AND 12 LEAD ORDERED. NITRO, SL FIRST DOSE GIVEN - WAS 7:10. A FEW MINUTES LATER IT DROPPED TO 3:10, AND NOW PAIN RELIEVED BUT STILL HAS "PRESSURE". 21 LEAD EKG REVEALS NO CHANGE FROM LAST 12 LEAD. AWAITING CXR.
--- NOTE | 2021-06-05 05:45 | NUR ---
CXR DONE, WAITING FOR RESULTS. DENIES CHEST PAIN. BP WNL. CALL LIGHT IN REACH. RESTING QUIETLY
[2021-06-05 05:54] LABS: Hematocrit 41.2 % (37.0-53.0); Hemoglobin 13.8 g/dL (13.5-17.5); Mean Corpuscular HGB 31.5 pg (26.0-34.0); Mean Corpuscular HGB Conc 33.5 g/dL (31.5-36.5); Mean Corpuscular Volume 94 fL (80-100); Mean Platelet Volume 10.7 fL (9.1-12.4); Platelet Count 219 K/mm3 (150-400); RDW Coefficient Variation 13.1 % (11.7-14.2); RDW Standard Deviation 45.1 fL (35.1-46.3); Red Blood Cell Count 4.38 M/mm3 (4.30-5.90); White Blood Cell Count 9.89 K/mm3 (4.00-11.30)
--- NOTE | 2021-06-05 05:57 | NUR ---
COUNTY HISTORIAN SUMMARY AT SHIFT COMMENCE PT WAS NOTED TO BE OVERHEARD YELLING INTO PHONE AT FAMILY MEMBERS, PT STATED HIS HAD BEEN HAVING S/S THAT MAY BE POSSIBLE COVID. SHE ALLEGEDLY HAD ATTEMPTED TO GET TESTED BUT COULDNT FIND ANY PLACE THAT WOULD TEST HER AND SHE WAS WORRIED TO PASS IT ON TO PT. PT QUITE ANXIOUS. THEN HE SAID JE COULDNT REACH HER, SHE WAS AVOIDING TALKING TO HIM AND SO HE HAD TO CALL OTHER FAMILY MEMBERS AND SUCH TO ATTEMPT TO REACH HER. NOTED HIM YELLING AT SAID INDIVIDUALS. NURSE ENCOURAGED HIM TO CALL DOWN, TO ASK THE AM NURSE TO SEE IF THE MD COULD GET TESTED IN THE ED AND JUST CALM [place] AND REST. HE DID CALM, WENT TO BED AND AFTER A FEW HOURS REQUESTED IVF STOPPED HE WAS FEELING IT WAS WORSENING HIS PNA/RESPS. IVF STOPPED PER HIS REFUSAL AND HE WENT TO SLEEP. THEN EARLIER THIS AM WOKE UP AND C/O CHEST PAIN AND PRESSURE 7:10. MD NOTIFIED, ORDERS FOR EKG, NITRO AND CXR OBTAINED. FIRST DOSE OF NITRO SL EFFECTIVE - DROPPED THE PAIN FROM 7:10 TO 3:10 AND THEN TO ZERO. CHEST PRESSURE FOLLOWED AND BP WHICH WAS ELEVATED SOON BECAME WDL. SEE VS IN CHART. MANAGER RADIATION DID 12 LEAD EKG, NO CHANGED FROM PREVIOUS EKG. CXR DONE, AWAINTING RESULTS. CURRENTLY RESTING WITH OUT C/O. CALL LIGHT IN REACH
[2021-06-05 06:09] LABS: Bun/Creatinine Ratio 28.2 (12.0-20.0); Calcium, Blood 9.5 mg/dL (8.5-10.1); Creatinine, Blood 1.24 mg/dL (0.60-1.20); Potassium, Blood 3.8 mmol/L (3.5-5.5)
[2021-06-05 06:16] LABS: BAND PERCENT MAN 19 % (0-8); BASOPHILS PERCENT MAN 0 % (0-2); EOSINOPHILS PERCENT MAN 0 % (0-6); LYMPHOCYTES ABSOLUTE MAN 0.79 K/mm3 (0.84-5.20); LYMPHOCYTES PERCENT MAN 8 % (21-46); MONOCYTES ABSOLUTE MAN 0.29 K/mm3 (0.16-1.47); MONOCYTES PERCENT MAN 3 % (4-13); SEG NEUTROPHILS PERCENT MAN 70 % (41-73); TOTAL CELLS COUNTED 100
--- NOTE | 2021-06-05 07:33 | NUR ---
ADVISED PT HAS BEEN ANXIOUS OVER W/POSSIBLE COVID. WANTS SOMETHING FOR COUGH. REFUSES IV MAINTENANCE FLUID AND B.P. HIGH 172/108. TO ORDER MEDS AND D'C IV FLUID
--- NOTE | 2021-06-05 12:32 | NUR ---
RESIDENT TO PUT IN ANOTHER COUGH MED PER
--- NOTE | 2021-06-05 18:13 | NUR ---
ALERT. ORIENTED. VERY EMOTIONAL/DRAMATIC THIS SHIFT. TELE ON AND WAS SLIGHTLY TACH THIS AM <105. AT THIS TIME PACED 93 SR WITH PVC'S. ABLE TO MAKE NEEDS KNOWN, BUT DOES NOT ALWAYS USE CALL LIGHT. WALLING IN AGUILAR AND UPSET THAT HE CAN'T WALK FOR LONG HE IS USED TO. STS COUGH MEDS DO NOT WORK, BUT NOT HEARD COUGHING FOR A COUPLE HOURS AFTER GETTING. TO BE D'C TOMORROW. WCTM
--- NOTE | 2021-06-06 01:39 | NUR ---
06/05/211942 PER [facility] MAKER HAND, PT HAS A 6 BEAT RUN OF VTACH, PT'S RYTHYM IS NOW BACK TO PACED WITH PVC'S AT 83. PT'S HR INCREASES WITH HIS ANXIETY AND WHEN HE IS HAVING EMOTIONAL DISTRESS AND WITH EXERTION. IS AWARE.
--- NOTE | 2021-06-06 01:40 | NUR ---
06/05/21 2210 PT LYING IN BED, REPORTS SOB THAT INCREASES WITH EXERTION. PT IS ON AT AT 90%. SEE PREVIOUS NOTE FOR TELE READING. NO OTHER APPARENT SIGNS OF DISTRESS. CALL LIGHT IS IN REACH.
--- NOTE | 2021-06-06 02:12 | NUR ---
06/06/21 0152 PER LISA WHO IS COVERING FOR COATER, PT IS HAVING 4-5 BEAT RUNS OF VTACH AND AT ONE POINT HAD A 12 BEAT RUN OF VTACH. THIS IS NOT NEW FOR THIS PT, DR RIVERA. 0213 PT KEEPS GETTING UP, WALKING AROUND HOLDING HIS TELE MONITOR IN HIS HAND, ASKING WHEN HE CAN GET IT TAKING OFF AND IS IT TIME TO GO HOME YET. REMINDED PT OF WHAT TIME IT WAS AND THAT IS WAS NOT QUITE MORING YET. ENCOURAGED PT TO LAY DOWN AND RELAX AND ATTEMPT TO GET SOME SLEEP. NO OTHER APPARENT SIGNS OF DISTRESS. CALL LIGHT IS IN REACH.
--- NOTE | 2021-06-06 02:22 | NUR ---
0000 PT LYING IN BED, EYES CLOSED, APPEARS TO BE RESTING. BREATHING IS EVEN, UNLABORED. NO APPARENT SIGNS OF DISTRESS. CALL LIGHT IS IN REACH.
--- NOTE | 2021-06-06 06:18 | NUR ---
8334 PT REQUESTED AND RECIEVED COUGH MEDS, WILL EVAL FOR EFFECT. NO OTHER APPARENT SIGNS OF DISTRESS. CALL LIGHT IS IN REACH.
--- NOTE | 2021-06-06 06:19 | NUR ---
PT IS AAO X 4, ON RA. PT HAS A DRY COUGH, GOT ROBITUSSIN X 1, TESSALON PERLES X 2. SCD'S. TELE HAS INTERMITTENT RUNTS OF V TACH, 4-6 BEATS, 1 RUN OF 12 BEATS, BASELINE IS PACED WITH PVC'S. THIS IS NOT NEW FOR THIS PT, DR IS AWARE.
--- NOTE | 2021-06-06 06:21 | NUR ---
PT IS LYING IN BED, EYES CLOSED, APPEARS TO BE RESTING BREATHING IS EVEN, UNLABORED. NO APPARENT SIGNS OF DISTRESS. CALL LIGHT IS IN REACH. NO OTHER CHANGES THIS SHIFT.
[2021-06-06] MEDS ORDERED: AZIT500 PO (07:57)
[2021-06-06] MEDS ORDERED: CEPH500 PO (08:00)
[2021-06-06] MEDS ORDERED: ROBITUSSIN DM PO (08:01)
[2021-06-06] MEDS ORDERED: VISBIOME 112.51 EACH PO (08:02)
--- NOTE | 2021-06-06 10:18 | NUR ---
PT AWAKE, SITTING IN CHAIR AT BS, DURING SHIFT REPORT. PT WAITING TO GO HOME, SINCE YESTERDAY. DR NUNES NOTIFIED OF PT'S DETERMINATION TO BE D/C'D TANA. IV SITE AND TELE D/C'D, PER DR NUNES. PT ABLE TO GET DRESSED INDEPENDENTLY. RESIDENT CHARIS WELL DR NUNES HERE TO SEE PT. D/C INSTRUCTIONS REVIEWED WITH PT; VERBALIZED UNDERSTANDING. [facility] REQUEST. PT ASSISTED OUT TO DAUGHTER'S CAR, VIA W/C.
--- NOTE | 2021-06-06 10:38 | NUR ---
PATIENT CALLED TO REQUEST PRESCRIPTIONS BE FAXED TO [facility] IN [place] DUE TO HAVING TO WAIT AT [facility]. DONE.
== END 2021-06-06 08:54 | disposition home or self-care (01) | DRG 871 ==
LOC: ER 14:16 → MEDS 20:24 → ENPENDDIS 06-05 18:04 → MEDS 06-06 08:54
PROVIDERS: Family Medicine; Physician Assistant; ADMIT Internal Medicine
DX: A41.9 Sepsis, unspecified organism (principal); R65.21 Severe sepsis with septic shock; J18.9 Pneumonia, unspecified organism; J96.01 Acute respiratory failure with hypoxia; N17.9 Acute kidney failure, unspecified; I13.0 Hypertensive heart and chronic kidney disease with heart failure and stage 1 through stage 4 chronic kidney disease, or unspecified chronic kidney disease; J44.1 Chronic obstructive pulmonary disease with (acute) exacerbation; J44.0 Chronic obstructive pulmonary disease with (acute) lower respiratory infection; I50.32 Chronic diastolic (congestive) heart failure; I25.2 Old myocardial infarction; Z95.5 Presence of coronary angioplasty implant and graft; E11.22 Type 2 diabetes mellitus with diabetic chronic kidney disease; Z85.51 Personal history of malignant neoplasm of bladder; Z87.891 Personal history of nicotine dependence; Z88.6 Allergy status to analgesic agent; Z88.8 Allergy status to other drugs, medicaments and biological substances; Z79.899 Other long term (current) drug therapy; M06.9 Rheumatoid arthritis, unspecified; E11.42 Type 2 diabetes mellitus with diabetic polyneuropathy; I25.10 Atherosclerotic heart disease of native coronary artery without angina pectoris; K21.9 Gastro-esophageal reflux disease without esophagitis; Z95.0 Presence of cardiac pacemaker; Z79.82 Long term (current) use of aspirin; Z79.02 Long term (current) use of antithrombotics/antiplatelets; Z79.4 Long term (current) use of insulin; Z95.1 Presence of aortocoronary bypass graft; N18.9 Chronic kidney disease, unspecified
CPT/HCPCS: 36415; 71045; 71046; 80048; 80053; 81001; 82947; 83605; 83880; 84145; 85025; 87040; 87449; 93005; 93010; 94640; 94760; 96365; 96375; 99285-25; A9270; C9113; J0360; J0696; J1650; J1815; J1940; J7030

== ENCOUNTER → 2021-09-21 | Outpatient (CLI) | payer OTHER, MEDICARE ==
[~2021-09-21] MED LIST changes: +AZIT500 PO; +CEPH500 PO; +ROBITUSSIN DM PO; +VISBIOME 112.51 EACH PO
[2021-09-21 12:45] LABS: Appearance, Urine Clear (Clear); Bilirubin, Urine Neg (Neg); Blood, Urine 4+ (Neg); Color, Urine Yellow (P-Yellow); Glucose Qualitative, Urine Neg (Neg); Ketones, Urine Neg (Neg); Leukocyte Esterase, Urine Neg (Neg); Nitrite, Urine Neg (Neg); Protein, Urine 1+ (Neg); Specific Gravity, Urine 1.005 (1.003-1.022); Urobilinogen, Urine NORM (Normal)
[2021-09-21 13:04] LABS: Bacteria Rare /hpf; Squamous Epithelial Cells Not Seen /hpf (Few); White Blood Cells, Urine 0-2 /hpf (0-5)
== END | disposition home or self-care (01) ==
LOC: LAB SHORT 11:34 → LAB FUT 09-20 18:25
PROVIDERS: Nurse Practitioner Family
DX: R30.0 Dysuria (principal)
CPT/HCPCS: 81001; 87086

== ENCOUNTER 2022-01-10 10:03 | Emergency (ER) | payer OTHER ==
[~2022-01-10] VITALS: Ht 170.2 cm; Wt 81.7 kg
[2022-01-10] MEDS ORDERED: LANTUS SOL100 UNIT/1 SQ (10:30)
[2022-01-10] MEDS ORDERED: INSULIN AS100 UNIT/8 SQ (10:31)
[2022-01-10] MEDS ORDERED: GABA300 PO (10:32)
[2022-01-10] MEDS ORDERED: GUAI600T33 PO (10:33)
[2022-01-10] MEDS ORDERED: Norco 10-325 T1 EACH PO (10:33)
[2022-01-10] MEDS ORDERED: NIAC500 PO (10:33)
[2022-01-10] MEDS ORDERED: HYDMOR2 PO (10:54)
== END 2022-01-10 11:25 | disposition home or self-care (01) ==
LOC: ER 10:03
DX: M79.10 Myalgia, unspecified site (principal); M25.50 Pain in unspecified joint; T45.1X5A Adverse effect of antineoplastic and immunosuppressive drugs, initial encounter; E11.42 Type 2 diabetes mellitus with diabetic polyneuropathy; I11.0 Hypertensive heart disease with heart failure; I50.9 Heart failure, unspecified; I25.2 Old myocardial infarction; I25.10 Atherosclerotic heart disease of native coronary artery without angina pectoris; K21.9 Gastro-esophageal reflux disease without esophagitis; J44.9 Chronic obstructive pulmonary disease, unspecified; Z87.891 Personal history of nicotine dependence; Z88.8 Allergy status to other drugs, medicaments and biological substances; Z88.6 Allergy status to analgesic agent; Z79.4 Long term (current) use of insulin; Z79.899 Other long term (current) drug therapy
CPT/HCPCS: 96372; 99283-25; J1170

== ENCOUNTER 2022-04-01 01:27 | Emergency (ER) | payer OTHER ==
[~2022-04-01] VITALS: Ht 165.1 cm; Wt 81.7 kg
[~2022-04-01 01:27] MED LIST changes: +GUAI600T33 PO; +HYDMOR2 PO; +INSULIN AS100 UNIT/8 SQ; +LANTUS SOL100 UNIT/1 SQ; +NIAC500 PO; +Norco 10-325 T1 EACH PO
[2022-04-01 03:45] LABS: BASOPHILS ABSOLUTE AUTO 0.06 K/mm3 (0.00-0.23); BASOPHILS PERCENT AUTO 0 % (0-2); EOSINOPHILS ABSOLUTE AUTO 0.02 K/mm3 (0.00-0.68); EOSINOPHILS PERCENT AUTO 0 % (0-6); Hematocrit 44.5 % (37.0-53.0); Hemoglobin 14.4 g/dL (13.5-17.5); IMMATURE GRAN ABSOLUTE AUTO 0.08 K/mm3 (0.00-0.10); IMMATURE GRAN PERCENT AUTO 1 % (0-1); LYMPHOCYTES ABSOLUTE AUTO 1.06 K/mm3 (0.84-5.20); LYMPHOCYTES PERCENT AUTO 8 % (21-46); MONOCYTES ABSOLUTE AUTO 0.92 K/mm3 (0.16-1.47); MONOCYTES PERCENT AUTO 7 % (4-13); Mean Corpuscular HGB 30.9 pg (26.0-34.0); Mean Corpuscular HGB Conc 32.4 g/dL (31.5-36.5); Mean Corpuscular Volume 96 fL (80-100); Mean Platelet Volume 8.7 fL (9.1-12.4); NEUTROPHILS ABSOLUTE AUTO 11.87 K/mm3 (1.96-9.15); NEUTROPHILS PERCENT AUTO 85 % (41-73); Platelet Count 348 K/mm3 (150-400); RDW Coefficient Variation 13.5 % (11.7-14.2); RDW Standard Deviation 47.9 fL (35.1-46.3); Red Blood Cell Count 4.66 M/mm3 (4.30-5.90); White Blood Cell Count 14.01 K/mm3 (4.00-11.30)
[2022-04-01 03:58] LABS: Bun/Creatinine Ratio 25.5 (12.0-20.0); Calcium, Blood 9.2 mg/dL (8.5-10.1); Creatinine, Blood 1.57 mg/dL (0.60-1.20); Potassium, Blood 4.2 mmol/L (3.5-5.5)
== END 2022-04-01 07:21 | disposition home or self-care (01) ==
LOC: ER 01:27
PROVIDERS: Emergency Medicine
DX: R33.9 Retention of urine, unspecified (principal); R31.9 Hematuria, unspecified; R10.30 Lower abdominal pain, unspecified; I11.0 Hypertensive heart disease with heart failure; I50.9 Heart failure, unspecified; I25.2 Old myocardial infarction; E11.42 Type 2 diabetes mellitus with diabetic polyneuropathy; I25.10 Atherosclerotic heart disease of native coronary artery without angina pectoris; K21.9 Gastro-esophageal reflux disease without esophagitis; J44.9 Chronic obstructive pulmonary disease, unspecified; Z85.51 Personal history of malignant neoplasm of bladder; Z87.891 Personal history of nicotine dependence; Z79.899 Other long term (current) drug therapy; Z79.4 Long term (current) use of insulin; Z95.0 Presence of cardiac pacemaker; Z95.1 Presence of aortocoronary bypass graft; Z88.8 Allergy status to other drugs, medicaments and biological substances; Z91.018 Allergy to other foods; Z79.02 Long term (current) use of antithrombotics/antiplatelets
CPT/HCPCS: 51798; 80048; 85025; 87086; A9270

== ENCOUNTER 2022-04-03 04:38 | Observation (INO) | payer OTHER ==
[~2022-04-03] VITALS: Ht 177.8 cm; Wt 81.8 kg
[2022-04-03 05:47] LABS: BASOPHILS ABSOLUTE AUTO 0.06 K/mm3 (0.00-0.23); BASOPHILS PERCENT AUTO 1 % (0-2); EOSINOPHILS ABSOLUTE AUTO 0.18 K/mm3 (0.00-0.68); EOSINOPHILS PERCENT AUTO 2 % (0-6); Hematocrit 36.9 % (37.0-53.0); Hemoglobin 11.9 g/dL (13.5-17.5); IMMATURE GRAN ABSOLUTE AUTO 0.04 K/mm3 (0.00-0.10); IMMATURE GRAN PERCENT AUTO 0 % (0-1); LYMPHOCYTES ABSOLUTE AUTO 1.71 K/mm3 (0.84-5.20); LYMPHOCYTES PERCENT AUTO 19 % (21-46); MONOCYTES ABSOLUTE AUTO 0.94 K/mm3 (0.16-1.47); MONOCYTES PERCENT AUTO 10 % (4-13); Mean Corpuscular HGB Conc 32.2 g/dL (31.5-36.5); Mean Corpuscular Volume 96 fL (80-100); Mean Platelet Volume 9.2 fL (9.1-12.4); NEUTROPHILS ABSOLUTE AUTO 6.13 K/mm3 (1.96-9.15); NEUTROPHILS PERCENT AUTO 68 % (41-73); Platelet Count 262 K/mm3 (150-400); RDW Standard Deviation 49.1 fL (35.1-46.3); Red Blood Cell Count 3.84 M/mm3 (4.30-5.90); White Blood Cell Count 9.06 K/mm3 (4.00-11.30)
[2022-04-03 06:06] LABS: Albumin, Blood 3.2 g/dL (3.4-5.0); Albumin/Globulin Ratio 0.8 (0.8-1.8); Bilirubin, Total 0.5 mg/dL (0.1-1.0); Calcium, Blood 9.1 mg/dL (8.5-10.1); Creatinine, Blood 1.71 mg/dL (0.60-1.20); Potassium, Blood 4.2 mmol/L (3.5-5.5); Total Protein, Blood 7.2 g/dL (6.4-8.2)
[2022-04-03 09:40] LABS: Hematocrit 34.3 % (37.0-53.0); Hemoglobin 11.2 g/dL (13.5-17.5); Mean Corpuscular HGB 31.1 pg (26.0-34.0); Mean Corpuscular HGB Conc 32.7 g/dL (31.5-36.5); Mean Corpuscular Volume 95 fL (80-100); Platelet Count 251 K/mm3 (150-400); RDW Coefficient Variation 13.7 % (11.7-14.2); RDW Standard Deviation 47.4 fL (35.1-46.3); White Blood Cell Count 9.24 K/mm3 (4.00-11.30)
[2022-04-03 14:22] LABS: SARS-Cov-2 (COVID-19) PCR, MMC NEGATIVE (NEGATIVE)
[2022-04-03 18:03] LABS: Hematocrit 37.7 % (37.0-53.0)
--- NOTE | 2022-04-03 18:55 | NUR ---
DAY SHIFT SUMMARY 81 YR OLD MALE PT, ER TRANSFER, WITH HEMATURIA. BUNDY IN PLACE, PATENT/INTACT/DRAINING VIA GRAVITY, URINE CRANBERRY IN COLOR. CHRONIC JOINT PAIN, MEDICATED PER EMAR. AT BEDSIDE. ORIENTED TO SURROUNDINGS/ROOM/CALL LIGHT, ABLE TO CALL APPROPRIATELY. RA, HARSHA DIET.
[2022-04-04 02:25] LABS: Hematocrit 36.9 % (37.0-53.0)
[2022-04-04 02:44] LABS: Albumin, Blood 2.8 g/dL (3.4-5.0); Albumin/Globulin Ratio 0.8 (0.8-1.8); Bilirubin, Total 0.5 mg/dL (0.1-1.0); Bun/Creatinine Ratio 22.5 (12.0-20.0); Calcium, Blood 8.9 mg/dL (8.5-10.1); Creatinine, Blood 1.42 mg/dL (0.60-1.20); Globulin, Blood 3.7 g/dL (2.2-4.0); Potassium, Blood 4.5 mmol/L (3.5-5.5); Total Protein, Blood 6.5 g/dL (6.4-8.2)
--- NOTE | 2022-04-04 05:47 | NUR ---
SHIFT SUMMARY NOC: BUNDY OUTPUT 400 ML DARK BLOOD. CATHETER SHOWS NO BLOOD CLOTS AND PT SAYS HE HAS NO BLADDER DISCOMFORT. PT STATES AT LEAST ONCE EMPTIED BUNDY BAG INTO TOILET. CONTINOUS BLADDER IRRIGATION WAS NOT GOING AT START OF SHIFT. IT IS UNCLEAR WHETHER THIS WAS ON PURPOSE. WILL HAVE DAY SHIFT CONFER WITH DAY MD FOR CBI PLAN. PT HAVING RIGHT SHOULDER PAIN. PRN NORCO GIVEN WITH POSITIVE EFFECT.
[2022-04-04 10:02] LABS: Hematocrit 35.6 % (37.0-53.0); Hemoglobin 11.7 g/dL (13.5-17.5)
--- NOTE | 2022-04-04 12:49 | NUR ---
DISCHARGE SUMMARY PT IV REMOVED PRIOR TO DISCHARGE, SENT HOME WITH NIHARIKA PER DR POSADAS. DISCHARGE EDUCATIONS REVIEWED WITH AND SIGNED BY PATIENT. PT TRANSFERED VIA WHEELCHAIR ALONG WITH PERSONAL BELONGINGS TO RIDE AT [facility].
== END 2022-04-04 12:40 | disposition home or self-care (01) ==
LOC: ER 04:38 → MEDS 04:39
PROVIDERS: Nurse Practitioner Acute Care; Student in an Organized Health Care Education/Training Program; ADMIT Internal Medicine
DX: C67.9 Malignant neoplasm of bladder, unspecified (principal); D62 Acute posthemorrhagic anemia; I25.10 Atherosclerotic heart disease of native coronary artery without angina pectoris; I13.0 Hypertensive heart and chronic kidney disease with heart failure and stage 1 through stage 4 chronic kidney disease, or unspecified chronic kidney disease; I50.32 Chronic diastolic (congestive) heart failure; N18.30 Chronic kidney disease, stage 3 unspecified; E11.22 Type 2 diabetes mellitus with diabetic chronic kidney disease; G89.29 Other chronic pain; F11.20 Opioid dependence, uncomplicated; N40.0 Benign prostatic hyperplasia without lower urinary tract symptoms; E78.5 Hyperlipidemia, unspecified; K21.9 Gastro-esophageal reflux disease without esophagitis; Z20.822 Contact with and (suspected) exposure to COVID-19; Z88.6 Allergy status to analgesic agent; Z88.5 Allergy status to narcotic agent; Z88.8 Allergy status to other drugs, medicaments and biological substances; Z91.018 Allergy to other foods; Z95.1 Presence of aortocoronary bypass graft; Z95.0 Presence of cardiac pacemaker; Z95.5 Presence of coronary angioplasty implant and graft; Z79.4 Long term (current) use of insulin
CPT/HCPCS: 36415; 51700; 80053; 82947; 85014; 85018; 85025; 85027; 99285-25; A9270; C9113; G0378; U0004

== ENCOUNTER 2022-04-30 10:38 | Emergency (ER) | payer OTHER ==
[~2022-04-30] VITALS: Ht 165.1 cm; Wt 77.6 kg
[2022-04-30 11:29] LABS: Source, Urine Clean Catch
[2022-04-30 11:34] LABS: BASOPHILS ABSOLUTE AUTO 0.03 K/mm3 (0.00-0.23); BASOPHILS PERCENT AUTO 0 % (0-2); EOSINOPHILS ABSOLUTE AUTO 0.14 K/mm3 (0.00-0.68); EOSINOPHILS PERCENT AUTO 1 % (0-6); Hematocrit 39.1 % (37.0-53.0); IMMATURE GRAN ABSOLUTE AUTO 0.04 K/mm3 (0.00-0.10); IMMATURE GRAN PERCENT AUTO 0 % (0-1); LYMPHOCYTES ABSOLUTE AUTO 1.79 K/mm3 (0.84-5.20); LYMPHOCYTES PERCENT AUTO 18 % (21-46); MONOCYTES ABSOLUTE AUTO 0.77 K/mm3 (0.16-1.47); MONOCYTES PERCENT AUTO 8 % (4-13); Mean Corpuscular HGB Conc 33.2 g/dL (31.5-36.5); Mean Corpuscular Volume 93 fL (80-100); Mean Platelet Volume 9.1 fL (9.1-12.4); NEUTROPHILS ABSOLUTE AUTO 6.96 K/mm3 (1.96-9.15); NEUTROPHILS PERCENT AUTO 72 % (41-73); Platelet Count 227 K/mm3 (150-400); RDW Standard Deviation 44.4 fL (35.1-46.3); Red Blood Cell Count 4.19 M/mm3 (4.30-5.90); White Blood Cell Count 9.73 K/mm3 (4.00-11.30)
[2022-04-30 11:41] LABS: Bilirubin, Urine Neg (Neg); Blood, Urine 5+ (Neg); Glucose Qualitative, Urine Neg (Neg); Ketones, Urine 1+ (Neg); Leukocyte Esterase, Urine 3+ (Neg); Nitrite, Urine Neg (Neg); Protein, Urine 4+ (Neg); Specific Gravity, Urine 1.005 (1.003-1.022); Urobilinogen, Urine NORM (Normal)
[2022-04-30 11:48] LABS: Appearance, Urine Cloudy (Clear); Color, Urine Red (P-Yellow)
[2022-04-30 11:51] LABS: Albumin, Blood 3.4 g/dL (3.4-5.0); Albumin/Globulin Ratio 0.9 (0.8-1.8); Bilirubin, Total 0.5 mg/dL (0.1-1.0); Bun/Creatinine Ratio 16.8 (12.0-20.0); Calcium, Blood 8.6 mg/dL (8.5-10.1); Creatinine, Blood 1.43 mg/dL (0.60-1.20); Globulin, Blood 3.9 g/dL (2.2-4.0); Potassium, Blood 4.5 mmol/L (3.5-5.5); Total Protein, Blood 7.3 g/dL (6.4-8.2)
[2022-04-30 11:53] LABS: Bacteria Few /hpf; Red Blood Cells, Urine TNTC /hpf (0-2); Squamous Epithelial Cells Few /hpf (Few)
== END 2022-04-30 13:11 | disposition home or self-care (01) ==
LOC: ER 10:38
PROVIDERS: Physician Assistant
DX: R31.9 Hematuria, unspecified (principal); C67.9 Malignant neoplasm of bladder, unspecified; E11.42 Type 2 diabetes mellitus with diabetic polyneuropathy; I25.10 Atherosclerotic heart disease of native coronary artery without angina pectoris; I11.0 Hypertensive heart disease with heart failure; I50.9 Heart failure, unspecified; J44.9 Chronic obstructive pulmonary disease, unspecified; I25.2 Old myocardial infarction; Z95.0 Presence of cardiac pacemaker; Z95.1 Presence of aortocoronary bypass graft; Z88.8 Allergy status to other drugs, medicaments and biological substances; Z79.899 Other long term (current) drug therapy; Z87.891 Personal history of nicotine dependence
CPT/HCPCS: 36415; 80053; 81001; 85025

== ENCOUNTER 2022-10-17 20:45 | Emergency (ER) | payer OTHER ==
[~2022-10-17] VITALS: Ht 167.6 cm; Wt 90.7 kg
[~2022-10-17 20:45] MED LIST changes: +SULTRIDS PO
== END 2022-10-17 21:41 | disposition home or self-care (01) ==
LOC: ER 20:45
DX: M54.41 Lumbago with sciatica, right side (principal); E11.9 Type 2 diabetes mellitus without complications; I25.2 Old myocardial infarction; I25.10 Atherosclerotic heart disease of native coronary artery without angina pectoris; N19 Unspecified kidney failure; I11.0 Hypertensive heart disease with heart failure; I50.9 Heart failure, unspecified; J44.9 Chronic obstructive pulmonary disease, unspecified; Z88.8 Allergy status to other drugs, medicaments and biological substances; Z91.09 Other allergy status, other than to drugs and biological substances; Z79.899 Other long term (current) drug therapy; Z79.4 Long term (current) use of insulin; Z95.0 Presence of cardiac pacemaker; Z95.1 Presence of aortocoronary bypass graft; Z87.891 Personal history of nicotine dependence
CPT/HCPCS: J1885

== ENCOUNTER 2022-10-18 15:06 | Emergency (ER) | payer OTHER ==
[~2022-10-18] VITALS: Ht 165.1 cm; Wt 81.7 kg
== END 2022-10-18 17:10 | disposition home or self-care (01) ==
LOC: ER 15:06
DX: M54.40 Lumbago with sciatica, unspecified side (principal); E11.40 Type 2 diabetes mellitus with diabetic neuropathy, unspecified; Z88.8 Allergy status to other drugs, medicaments and biological substances; Z91.018 Allergy to other foods; Z79.899 Other long term (current) drug therapy; Z79.4 Long term (current) use of insulin; Z87.891 Personal history of nicotine dependence
CPT/HCPCS: 99282

== ENCOUNTER 2022-12-27 15:09 | Emergency (ER) | payer OTHER ==
[~2022-12-27] VITALS: Ht 165.1 cm; Wt 86.6 kg
[2022-12-27 15:30] LABS: BASOPHILS ABSOLUTE AUTO 0.02 K/mm3 (0.00-0.23); BASOPHILS PERCENT AUTO 0 % (0-2); EOSINOPHILS ABSOLUTE AUTO 0.01 K/mm3 (0.00-0.68); EOSINOPHILS PERCENT AUTO 0 % (0-6); Hematocrit 39.9 % (37.0-53.0); IMMATURE GRAN ABSOLUTE AUTO 0.02 K/mm3 (0.00-0.10); IMMATURE GRAN PERCENT AUTO 0 % (0-1); LYMPHOCYTES ABSOLUTE AUTO 0.77 K/mm3 (0.84-5.20); LYMPHOCYTES PERCENT AUTO 9 % (21-46); MONOCYTES ABSOLUTE AUTO 0.12 K/mm3 (0.16-1.47); MONOCYTES PERCENT AUTO 1 % (4-13); Mean Corpuscular HGB 27.8 pg (26.0-34.0); Mean Corpuscular HGB Conc 32.6 g/dL (31.5-36.5); Mean Corpuscular Volume 85 fL (80-100); Mean Platelet Volume 9.7 fL (9.1-12.4); NEUTROPHILS ABSOLUTE AUTO 7.63 K/mm3 (1.96-9.15); NEUTROPHILS PERCENT AUTO 89 % (41-73); Platelet Count 212 K/mm3 (150-400); RDW Coefficient Variation 16.6 % (11.7-14.2); RDW Standard Deviation 51.8 fL (35.1-46.3); Red Blood Cell Count 4.67 M/mm3 (4.30-5.90); White Blood Cell Count 8.57 K/mm3 (4.00-11.30)
[2022-12-27 15:45] LABS: Bilirubin, Total 0.4 mg/dL (0.1-1.0); Bun/Creatinine Ratio 23.7 (12.0-20.0); Calcium, Blood 9.8 mg/dL (8.5-10.1); Creatinine, Blood 1.77 mg/dL (0.60-1.20); Globulin, Blood 3.9 g/dL (2.2-4.0); Potassium, Blood 4.3 mmol/L (3.5-5.5); Total Protein, Blood 7.9 g/dL (6.4-8.2)
== END 2022-12-27 18:15 | disposition home or self-care (01) ==
LOC: ER 15:09
PROVIDERS: Emergency Medicine
DX: R07.89 Other chest pain (principal); Z88.8 Allergy status to other drugs, medicaments and biological substances; Z88.6 Allergy status to analgesic agent; Z79.899 Other long term (current) drug therapy; Z79.4 Long term (current) use of insulin; E11.42 Type 2 diabetes mellitus with diabetic polyneuropathy; M06.9 Rheumatoid arthritis, unspecified; I11.0 Hypertensive heart disease with heart failure; G47.30 Sleep apnea, unspecified; I50.9 Heart failure, unspecified; J44.9 Chronic obstructive pulmonary disease, unspecified
CPT/HCPCS: 71045; 80053; 83690; 83880; 84484; 85025; 93005; 93010; 99285-25

== ENCOUNTER 2023-01-02 11:42 | Emergency (ER) | payer OTHER ==
[~2023-01-02] VITALS: Ht 165.1 cm; Wt 86.6 kg
[2023-01-02] MEDS ORDERED: Rapaflo8 MG PO (12:00)
[2023-01-02 12:06] LABS: BASOPHILS ABSOLUTE AUTO 0.03 K/mm3 (0.00-0.23); BASOPHILS PERCENT AUTO 0 % (0-2); EOSINOPHILS ABSOLUTE AUTO 0.11 K/mm3 (0.00-0.68); EOSINOPHILS PERCENT AUTO 1 % (0-6); Hematocrit 37.1 % (37.0-53.0); Hemoglobin 12.1 g/dL (13.5-17.5); IMMATURE GRAN ABSOLUTE AUTO 0.02 K/mm3 (0.00-0.10); IMMATURE GRAN PERCENT AUTO 0 % (0-1); LYMPHOCYTES ABSOLUTE AUTO 1.42 K/mm3 (0.84-5.20); LYMPHOCYTES PERCENT AUTO 14 % (21-46); MONOCYTES ABSOLUTE AUTO 0.78 K/mm3 (0.16-1.47); MONOCYTES PERCENT AUTO 8 % (4-13); Mean Corpuscular HGB 28.3 pg (26.0-34.0); Mean Corpuscular HGB Conc 32.6 g/dL (31.5-36.5); Mean Corpuscular Volume 87 fL (80-100); Mean Platelet Volume 10.1 fL (9.1-12.4); NEUTROPHILS ABSOLUTE AUTO 7.84 K/mm3 (1.96-9.15); NEUTROPHILS PERCENT AUTO 77 % (41-73); Platelet Count 301 K/mm3 (150-400); RDW Coefficient Variation 17.2 % (11.7-14.2); RDW Standard Deviation 54.8 fL (35.1-46.3); Red Blood Cell Count 4.27 M/mm3 (4.30-5.90)
[2023-01-02 12:35] LABS: Albumin, Blood 3.2 g/dL (3.4-5.0); Albumin/Globulin Ratio 0.8 (0.8-1.8); Bilirubin, Total 0.5 mg/dL (0.1-1.0); Bun/Creatinine Ratio 20.9 (12.0-20.0); Calcium, Blood 9.6 mg/dL (8.5-10.1); Creatinine, Blood 1.29 mg/dL (0.60-1.20); Globulin, Blood 4.1 g/dL (2.2-4.0); Potassium, Blood 4.7 mmol/L (3.5-5.5); Total Protein, Blood 7.3 g/dL (6.4-8.2)
[2023-01-02] MEDS ORDERED: Protonix40 MG PO (14:07)
== END 2023-01-02 14:52 | disposition home or self-care (01) ==
LOC: ER 11:42
PROVIDERS: Physician Assistant
DX: K29.80 Duodenitis without bleeding (principal); K21.9 Gastro-esophageal reflux disease without esophagitis; K25.9 Gastric ulcer, unspecified as acute or chronic, without hemorrhage or perforation; Z88.8 Allergy status to other drugs, medicaments and biological substances; Z79.899 Other long term (current) drug therapy; Z79.4 Long term (current) use of insulin; E11.42 Type 2 diabetes mellitus with diabetic polyneuropathy; M06.9 Rheumatoid arthritis, unspecified; I25.2 Old myocardial infarction; I25.10 Atherosclerotic heart disease of native coronary artery without angina pectoris; I11.0 Hypertensive heart disease with heart failure; G47.30 Sleep apnea, unspecified; I50.9 Heart failure, unspecified; J44.9 Chronic obstructive pulmonary disease, unspecified; Z87.891 Personal history of nicotine dependence
CPT/HCPCS: 74176; 80053; 83690; 85025; 99284-25

== ENCOUNTER 2023-06-14 09:44 | Day surgery (SDC) | payer OTHER | END 2023-06-14 15:40 | disposition home or self-care (01) | LOC: ORSCMMR 09:44 | PROC: 0YQ60ZZ Repair Left Inguinal Region, Open Approach (ICD-10-PCS; principal; 2023-06-14) | DX: K40.30 Unilateral inguinal hernia, with obstruction, without gangrene, not specified as recurrent (principal); E11.40 Type 2 diabetes mellitus with diabetic neuropathy, unspecified; I10 Essential (primary) hypertension; I25.10 Atherosclerotic heart disease of native coronary artery without angina pectoris; E78.5 Hyperlipidemia, unspecified; Z87.891 Personal history of nicotine dependence; Z79.4 Long term (current) use of insulin; Z79.899 Other long term (current) drug therapy; Z85.51 Personal history of malignant neoplasm of bladder; Z79.82 Long term (current) use of aspirin ==